=== PATIENT | female | born 1945 | race Caucasian/White ===

== ENCOUNTER 2020-05-04 18:27 | Emergency (ER) | payer OTHER, BC ==
[~2020-05-04] VITALS: Ht 157.5 cm; Wt 93.4 kg
[2020-05-04 18:51] VITALS: Ht 157.5 cm; Wt 93.4 kg
[2020-05-04 20:06] LABS: PLATELET COUNT 229 x10^3mcL (179-408); RED CELL DISTRIBUTION WIDTH 13.6 % (12.3-17.7)
[2020-05-04 20:12] LABS: CALCIUM 9.1 mg/dL (8.5-10.1); CARBON DIOXIDE 29.3 mmol/L (21-32); CHLORIDE SERUM 103 mmol/L (98-107); CREATININE SERUM 0.8 mg/dL (0.6-1.0); GLUCOSE SERUM 106 mg/dL (74-106); POTASSIUM SERUM 4.2 mmol/L (3.5-5.1); SODIUM SERUM 140 mmol/L (136-145)
[2020-05-04 20:17] LABS: ALBUMIN 3.9 g/dL (3.4-5.0); ALKALINE PHOSPHATASE 67 U/L (46-116); ALT/SGPT 58 U/L (14-59); AST/SGOT 33 U/L (15-37); BILIRUBIN TOTAL 0.6 mg/dL (0.20-1.00); TOTAL PROTEIN, SERUM 7.4 g/dL (6.4-8.2)
[2020-05-04 20:24] LABS: BAND NEUTROPHIL 4 % (0-10); BASOPHIL 0 % (0-2); MONOCYTE 6 % (0-7); SEGMENTED NEUTROPHILS 65 % (37-75)
[2020-05-04 20:26] LABS: PLATELET MORPHOLOGY PLATELETS NORMAL; rbc morphology (normal/abnorm) NORMAL (NORMAL)
[2020-05-04] MEDS ORDERED: CLARITIN-D 12HR1 T12 PO (20:53)
[2020-05-04] MEDS ORDERED: PREDNISONE20 MG PO (20:53)
[2020-05-04] MEDS ORDERED: PROAIR HFA8.5 GM INH (20:53)
[2020-05-04 21:24] VITALS: BP 119/62
== END 2020-05-04 21:24 | disposition home or self-care (01) ==
LOC: ED 18:27
PROVIDERS: Emergency Medicine
DX: J45.909 Unspecified asthma, uncomplicated (principal); J32.9 Chronic sinusitis, unspecified; I10 Essential (primary) hypertension; F32.9 Major depressive disorder, single episode, unspecified; Z91.041 Radiographic dye allergy status
CPT/HCPCS: 83880